=== PATIENT | male | born 2000 | race African-American/Black ===

== ENCOUNTER 2023-10-29 08:08 | Emergency (ER) | payer MEDICAID, OTHER ==
[~2023-10-29] VITALS: Ht 172.7 cm; Wt 76.0 kg
[2023-10-29 08:18] VITALS: BP 119/82; PULSE 72; RESP 18; TEMP 98.3; O2SAT 99
[2023-10-29] MEDS ORDERED: AMOX500T2 MT (08:40)
[2023-10-29] MEDS ORDERED: CARB-274 EACH EAR (08:40)
== END 2023-10-29 08:57 | disposition home or self-care (01) ==
LOC: ER 08:08
DX: H61.21 Impacted cerumen, right ear (principal)
CPT/HCPCS: 99283

== ENCOUNTER 2023-11-06 13:04 | Emergency (ER) | payer MEDICAID ==
[~2023-11-06] VITALS: Ht 177.8 cm; Wt 86.0 kg
[~2023-11-06 13:04] MED LIST: AMOX500T2 MT; CARB-274 EACH EAR
[2023-11-06 13:36] VITALS: BP 132/82; PULSE 81; RESP 20; TEMP 98.2; O2SAT 99
== END 2023-11-06 13:13 | disposition left against medical advice (07) ==
LOC: ER 13:04
DX: Z53.21 Procedure and treatment not carried out due to patient leaving prior to being seen by health care provider (principal)
CPT/HCPCS: 99281; Z7610

== ENCOUNTER 2023-11-07 08:24 | Emergency (ER) | payer MEDICAID ==
[~2023-11-07] VITALS: Ht 172.7 cm; Wt 79.4 kg
[2023-11-07 08:36] VITALS: BP 109/66; PULSE 71; RESP 16; TEMP 98.3; O2SAT 99
== END 2023-11-07 11:57 | disposition left against medical advice (07) ==
LOC: ER 08:24
DX: Z53.21 Procedure and treatment not carried out due to patient leaving prior to being seen by health care provider (principal)
CPT/HCPCS: 99281